=== PATIENT | male | born 1945 | race Caucasian/White ===

== ENCOUNTER → 2020-03-26 | Outpatient (CLI) | payer MEDICARE | LOC: KOH-I 11:44 | DX: R05 Cough (principal) | CPT/HCPCS: 71046 ==

== ENCOUNTER → 2021-08-13 | Outpatient (CLI) | payer MEDICARE | LOC: KOH-I 14:33 | DX: N50.3 Cyst of epididymis (principal); N50.819 Testicular pain, unspecified; N43.3 Hydrocele, unspecified | CPT/HCPCS: 76870 ==